=== PATIENT | male | born 1985 ===

== ENCOUNTER 2017-10-19 09:43 | Outpatient (CLI) | payer OTHER ==
[~2017-10-19] VITALS: Ht 162.6 cm; Wt 73.5 kg
== END 2017-10-19 10:00 | disposition home or self-care (01) ==
LOC: OFIC 805 09:43
DX: H66.92 Otitis media, unspecified, left ear (principal); H90.3 Sensorineural hearing loss, bilateral; R09.81 Nasal congestion; J32.8 Other chronic sinusitis